=== PATIENT | female | born 1995 | race Caucasian/White ===

== ENCOUNTER 2017-10-06 17:06 | Emergency (ER) | payer OTHER ==
[~2017-10-06] VITALS: Ht 162.6 cm; Wt 51.7 kg
[2017-10-06 17:12] VITALS: BP 131/77
== END 2017-10-06 22:15 | disposition home or self-care (01) ==
LOC: EME 17:06
DX: T76.21XA Adult sexual abuse, suspected, initial encounter (principal)
CPT/HCPCS: 99281; 99285; J0696